=== PATIENT | female | born 1930 ===

== ENCOUNTER 2019-03-17 18:25 | Inpatient (IN) | payer MEDICARE ==
[2019-03-17] MEDS ORDERED: NS 0.9% 1000 ML** 1,000 ML IV ONE (18:32)
--- NOTE | 2019-03-17 18:33 | ED ---
Neurological HPI - HPI Summary HPI Summary: Patient is an 88 y/o F presenting to the ED via EMS for a chief complaint of left-sided weakness. Patient is present with her daughter. At approximately 17: 30, the patient's granddaughter noticed the patient had right-sided weakness that is not at baseline. Patient reports numbness in the left UE. Patient does not have a fever. Last known well time was around 15:00. PMHx is significant for seizure disorder, stroke, and atrial fibrillation. Patient has baseline mental changes from a previous stroke. Patient's daughter denies that the patient had a loss of consciousness. She does not take blood thinners. Medications reviewed. Allergies noted. - History of Current Complaint Stated Complaint: POSS STROKE PER EMS Time Seen by Provider: 03/17/19 18:31 Hx Obtained From: Patient Onset/Duration: Sudden Onset, Still Present Timing: Sudden Onset Onset Severity: Moderate Current Severity: Moderate Neurological Deficit Location: LUE Pain Scale Used: 0-10 Numeric Syncope Context: Loss of Consciousness: No Aggravating: Nothing Alleviating: Nothing Associated Signs and Symptoms: Positive: Weakness - Left-sided. Negative: Loss of Consciousness, Fever - Allergy/Home Medications Allergies/Adverse Reactions: Allergies Allergy/AdvReac Type Severity Reaction Status Date / Time No Known Allergies Allergy Verified 03/17/19 19:04 Home Medications: Home Medications Atorvastatin* [Lipitor*] 80 mg PO DAILY 03/17/19 [History Confirmed 03/17/19] Citalopram TAB* [CeleXA TAB*] 10 mg PO DAILY 03/17/19 [History Confirmed ] NIFEdipine ER TAB* [Procardia Xl TAB*] 30 mg PO DAILY 03/17/19 [History Confirmed 03/17/19] Polyethylene Glycol 3350* [Miralax*] 17 gm PO DAILY 03/17/19 [History Confirmed 03/17/19] levETIRAcetam TAB* [Keppra TAB*] 1,000 mg PO BID 03/17/19 [History Confirmed ] PMH/Surg Hx/FS Hx/Imm Hx Previously Healthy: Yes Endocrine/Hematology History: Denies: Hx Diabetes Cardiovascular History: Reports: Hx Atrial Fibrillation Denies: Hx Hypercholesterolemia, Hx Hypertension Sensory History: Denies: Hx Legally Blind, Hx Deafness Opthamlomology History: Denies: Hx Legally Blind EENT History: Denies: Hx Deafness Neurological History: Reports: Hx Seizures, Other Neuro Impairments/Disorders - Stroke - Surgical History Surgical History: None Infectious Disease History: No - Family History Known Family History: Negative: Diabetes - Social History Occupation: Retired Lives: With Family Alcohol Use: None Hx Substance Use: No Substance Use Type: Reports: None Hx Tobacco Use: No Smoking Status (MU): Never Smoked Tobacco Review of Systems Negative: Fever Positive: Weakness - Positive left-sided weakness, Numbness - Left UE. Negative : Syncope - Negative LOC All Other Systems Reviewed And Are Negative: Yes Physical Exam - Summary Physical Exam Summary: Constitutional: Well-developed, Well-nourished, Alert. (-) Distressed Skin: Warm, Dry HENT: Normocephalic; Atraumatic Eyes: Conjunctiva normal Neck: Musculoskeletal ROM normal neck. (-) JVD, (-) Stridor, (-) Tracheal deviation Cardio: Rhythm regular, rate normal, Heart sounds normal; Intact distal pulses; Radial pulses are 2+ and symmetric. (-) Murmur Pulmonary/Chest wall: Effort normal. (-) Respiratory distress, (-) Wheezes, (-) Rales Abd: Soft, (-) tenderness, (-) Distension, (-) Guarding, (-) Rebound Musculoskeletal: (-) Edema Lymph: (-) Cervical adenopathy Neuro: Alert, Oriented x3. No effort against gravity in the upper extremity, effort in the left LE but cannot hold against gravity, no facial droop, cannot state name. Psych: Mood and affect Normal Triage Information Reviewed: Yes Vital Signs Reviewed: Yes - [place] Coma Scale Best Eye Response: 4 - Spontaneous Best Motor Response: 6 - Obeys Commands Best Verbal Response: 5 - Oriented Coma Scale Total: 15 Procedures - Sedation Patient Received Moderate/Deep Sedation with Procedure: No Diagnostics - Laboratory Result Diagrams: 03/17/19 18:43 03/17/19 18:43 Lab Statement: Any lab studies that have been ordered have been reviewed, and results considered in the medical decision making process. - CT Brain CT CT Interpretation Completed By: Radiologist Summary of CT Findings: Brain CT IMPRESSION: 1. No acute intracranial pathology. ASPECTS score 10. 2. Other chronic findings, as above. Reviewed by Dr. Sánchez. Head CTA CT Interpretation Completed By: Radiologist Summary of CT Findings: Head CTA IMPRESSION: 1. Mildly atherosclerotic non- stenotic bilateral common carotid arteries. Otherwise normal neck CTA. 2. Biapical lung findings suggesting chronic aspiration. Superimposed endobronchial pneumonia also considered. 3. Multiple small thyroid nodules. No followup imaging indicated per ACR guidelines. Reviewed by Dr. Sánchez. - EKG 19:05 Cardiac Rate: Other Rate - 75 BPM EKG Rhythm: Atrial Fibrillation ST Segment: Normal Ectopy: None Summary of EKG Findings: EKG at 19:05 shows 75 BPM with atrial fibrillation, no STEMI. Reviewed and interpreted by Dr. Sánchez. NIH Scale - NIH Scale Level of Consciousness: Alert/Keenly Responsive Ask Patient the Month and His/Her Age: One Correct/Not Aphasic Ask Pt to Open/Close Eyes and Programming Coordinator/Release Non-Paretic Hand: Both Correctly Best Gaze (Only Horizontal Eye Movement): Normal Facial Paresis-Pt to Smile & Close Eyes or Grimace Symmetry: Minor Paralysis Motor Function - Right Arm: No Drift-Holds 10 Seconds Motor Function - Left Arm: No Movement Motor Function - Right Leg: No Drift-Holds 10 Seconds Motor Function - Left Leg: Effort Against [place] NIH Stroke Scale Comment: Limited exam as patient was quickly evaluated and taken to the CT suite. Seizure occurred after return from CT suite and patient was post ictal and medicated making exam unable to be performed. Re-Evaluation - Re-Evaluation First Eval Re-Evaluation Time: 18:47 Comment: At 18:47, patient is talking with her family. She has a history of brain hemorhhage. She lives with her daguther and was functional until today. Patient's family is unsure if they want to pursue contrast imaging. The family does not want the [facility] stroke team involved yet. Second Eval Re-Evaluation Time: 18:54 Change: Worse Comment: At 18:54, patient is having a seizure. Third Eval Re-Evaluation Time: 19:17 Change: Unchanged Comment: At 19:17, patient is post ictal, family again declined a consultation with [facility]. Course/Dx - Diagnoses Provider Diagnoses: Grand mal seizure, CVA (cerebral vascular accident), Left-sided weakness, Atrial flutter During the Visit The Following Alert/Code Occurred: Code Gaspar - CODE GASPAR ETA 10 MINUTES AT 18:22. EMS ARRIVE TO [facility] at 18:25. DR. SÁNCHEZ PRESENT TO ASSESS THE PATIENT AT 18:26. PATIENT TAKEN TO HAVE A HEAD CTA AND BRAIN CT AT 18 :32. - Physician Notifications Discussed Care Of Patient With: Teetee Hebert - At 20:16, Dr. Hebert agrees to admit the patient with a diagnosis of grand mal seizure, CVA, left-sided weakness, atrial flutter. Time Discussed With Above Provider: 20:16 Instructed by Provider To: Admit As Inpatient Discharge ED - Sign-Out/Discharge Documenting (check all that apply): Patient Departure - Admit - Discharge Plan Condition: Stable Disposition: ADMITTED TO [facility] Referrals: [facility] [Outside] - Attestation Statements Document Initiated by Scribe: Yes Documenting Scribe: Nandini Parrish Provider For Whom Scribe is Documenting (Include Credential): Magdy Sánchez MD Scribe Attestation: Nandini James, scribed for Magdy Sánchez MD on 03/17/19 at 2023. Status of Scribe Document: Ready
[2019-03-17] MEDS ORDERED: Iodixanol* (CONTRAST) 320 MG/ML 100 ML SDV IV ONE (18:52)
[2019-03-17] MEDS ORDERED: Lorazepam PYXIS KEY ONE (18:53)
[2019-03-17] MEDS ORDERED: LORazepam INJ* 2 MG/ML 1 ML VIAL ONE (18:54)
[2019-03-17] MEDS ORDERED: levETIRAcetam 1000MG IVPREMIX* 1,000 MG/100 ML BAG IVPB ONE (18:55)
[2019-03-17] MEDS ORDERED: LORazepam INJ* 2 MG/ML 1 ML VIAL IV PUSH ONE (18:57)
[2019-03-17 19:00] LABS: ABS Eosinophils 0.1 10^3/ul (0-0.6); ABS Lymphocytes 1.2 10^3/ul (1.0-4.8); ABS Monocytes 0.6 10^3/ul (0-0.8); ABS Neutrophils 3.9 10^3/ul (1.5-7.7); Eosinophil % 2.3 %; Hematocrit 43 % (35-47); Hemoglobin 14.5 g/dL (12.0-16.0); Lymphocyte % 20.7 %; Mean Corpuscular HGB Conc 33 g/dL (31-36); Mean Corpuscular Hemoglobin 32 pg (27-31); Mean Corpuscular Volume 97 fL (80-97); Mean Platelet Volume 7.4 fL (7.4-10.4); Nucleated Red Blood Cells % 0.1; Platelet Count 219 10^3/uL (150-450); Red Cell Distribution Width 13 % (10-15); White Blood Count 5.9 10^3/uL (3.5-10.8)
[2019-03-17 19:09] LABS: Activated Partial Thrombo Time 33.3 seconds (26.0-38.0); INR 1.1 (0.82-1.09)
[2019-03-17 19:25] LABS: ALT 10 U/L (7-52); AST 18 U/L (13-39); Albumin 4.1 g/dL (3.2-5.2); Albumin/Globulin Ratio 1.6 (1-3); Alkaline Phosphatase 106 U/L (34-104); Anion Gap 8 mmol/L (2-11); BUN/Creatinine Ratio 23.1 (8-20); Blood Urea Nitrogen 18 mg/dL (6-24); CO2 Carbon Dioxide 28 mmol/L (22-32); Chloride 103 mmol/L (101-111); Cholesterol 168 mg/dL; EGFR African American 84.7 (>60); Globulin 2.5 g/dL (2-4); Glucose 125 mg/dL (70-100); HDL Cholesterol 66.8 mg/dL; LDL Cholesterol 86 mg/dL; Potassium 4.2 mmol/L (3.5-5.0); Sodium 139 mmol/L (135-145); Total Protein 6.6 g/dL (6.4-8.9); Triglycerides 76 mg/dL
[2019-03-17 19:30] LABS: Troponin I 0.04 ng/mL (<0.03)
[2019-03-17] MEDS ORDERED: Lorazepam PYXIS KEY PRN (20:56)
[2019-03-17] MEDS ORDERED: LORazepam INJ* 2 MG/ML 1 ML VIAL IV PUSH PRN (20:56)
[2019-03-17] MEDS ORDERED: NS 0.9% 1000 ML** 1,000 ML IV SCH (21:00)
[2019-03-17] MEDS ORDERED: Aspirin SUPP* 300 MG PR ONE (21:51)
[2019-03-17 22:22] LABS: Urine Appearance Clear; Urine Bilirubin Negative (Negative); Urine Blood 1+ (Negative); Urine Color Yellow; Urine Glucose Negative (Negative); Urine Ketones Negative (Negative); Urine Nitrite Negative (Negative); Urine Protein 1+(30 mg/dL) (Negative); Urine Specific Gravity > 1.060 (1.010-1.030); Urine Urobilinogen Negative (Negative)
[2019-03-17 22:35] LABS: Urine Bacteria Absent (Absent); Urine Red Blood Cell Trace(0-2/hpf) (Absent); Urine White Blood Cell Absent (Absent)
--- NOTE | 2019-03-17 23:14 | HP ---
CC: Dr. Yepez * HISTORY AND PHYSICAL: DATE OF ADMISSION: 03/17/19 PRIMARY CARE PROVIDER: Dr. Yepez. CHIEF COMPLAINT: Stroke. HISTORY OF PRESENT ILLNESS: Ms. 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 Following the patient's stroke in July, she regained independence with walking, dressing, and toileting; however, she would have help with showers. She could continue to help in the kitchen. She had essentially been living with her daughter and son-in-law. Her memory was poor before the stroke, became much worse. Everything had been stable up until the afternoon of 03/17/19 when the patient's granddaughter heard her state that she needs to go to the bathroom. She went to check on her and she found that she was not able to move her left arm. She could move her left leg, but was unable to get up on her own which was different from her baseline. The patient was noted to be very confused. Her speech, however, was clear and not garbled. Of note as above, the patient did have seizures at the time of her stroke in July. She was started on Keppra; however, this was subsequently weaned off due to psychiatric side effects. The patient had been seizure free. In the emergency room, the patient on presentation was noted to not be able to move her left arm. When she returned from CT scan, she had a grand mal seizure. She was given a milligram of Ativan, and since that time, she has been obtunded. PAST MEDICAL HISTORY: 1. CVA in July 2018, right MCA CVA with hemorrhagic transformation. 2. AFib. 3. Hypertension. 4. Anxiety. 5. Raynaud's. PAST SURGICAL HISTORY: 1. D and C. 2. Surgery for pyloric stenosis (?). MEDICATIONS: 1. Nifedipine 30 mg p.o. daily. 2. Aspirin 81 mg p.o. daily. 3. Celexa 10 mg p.o. daily. 4. Lipitor 80 mg p.o. daily. ALLERGIES: No known drug allergies. FAMILY HISTORY: Mom of complications of rheumatic heart disease. Dad of a brain tumor. SOCIAL HISTORY: The patient is a lifelong nonsmoker. She drinks alcohol rarely. She is . She again is living with her daughter and her son-in- law who is an design studio consultant. She has 3 children. Her 2 daughters would be her healthcare proxies. REVIEW OF SYSTEMS: Unobtainable from the patient. PHYSICAL EXAMINATION GENERAL: The patient is a well-developed elderly female, who is minimally responsive to light touch and does not respond to voice. VITAL SIGNS: Blood pressure 143/66, pulse 58, respirations 22, temp 96.9, O2 sat 100% on room air. HEENT: When I lift the patient's eyelids, her pupils are round, they react to light. Oropharynx is clear and appears moist. PULMONARY: Lungs are clear anteriorly. CARDIAC: Normal S1 and S2. Heart rate is irregularly irregular, mildly bradycardic. There is no lower extremity edema. ABDOMEN: Bowel sounds are present. Abdomen is soft, nontender, nondistended. MUSCULOSKELETAL: The patient moves her right arm freely. I do not see her move either of her lower extremities or her left upper extremity. NEUROLOGIC: Exam is not able to be completed adequately due to the patient not being able to follow command, though when I grabbed the patient's hand and put my fingers in the palm of her hand, she does not give me a grasp. The arm seems to be flaccid. She has an upgoing Babinski on the left. PSYCH: Unable to be evaluated. SKIN: Visible areas of skin are warm, dry, and without rash. DIAGNOSTIC STUDIES/LAB DATA: Labs: WBC 5.9, hemoglobin 14.5, hematocrit 43, platelets 219. INR 110. Sodium 139, potassium 4.2, chloride 103, CO2 of 28, BUN 18, creatinine 0.78, glucose 125, lactic acid 2.0, calcium 9.0. Bilirubin 0.6, AST 16, ALT 10, alk phos 106. Troponin 0.04. Albumin 4.1. Triglycerides 76, total cholesterol 168, LDL 86, HDL 66.8. EKG reveals atrial fib/flutter with a controlled rate. Chest x-ray to my interpretation, I question infiltrate in the right middle lobe versus scarring. CT brain: No acute intracranial pathology. There is chronic right parietotemporal infarct with encephalomalacia. There are nonspecific hypodensities in the periventricular and deep subcortical white matter most likely secondary to chronic small vessel ischemic change. There is no intracranial hemorrhage or extraaxial fluid collection. CTA head and neck: There is moderately atherosclerotic stenosis of the bilateral internal carotid arteries. There is mildly stenotic left vertebral artery. There is moderate chronic small vessel ischemic change and an old right temporoparietal MCA territorial infarct. ASSESSMENT AND PLAN: Ms. Hill is an 88-year-old female with a past history of right middle cerebral artery cerebrovascular accident, atrial fibrillation, hypertension, anxiety, and Raynaud's who presents to the emergency room after her family found her in the midst of having a cerebrovascular accident. 1. Probable right middle cerebral artery cerebrovascular accident. The patient was noted to have a flaccid left upper extremity. At this point, she is sedated from Ativan due to her having a grand mal seizure in the emergency room. She is not able to cooperate with exam. My hope is that by morning, she will be more alert. She does take aspirin on a daily basis and this has been ordered to continue. She will otherwise receive an aspirin 300 mg suppository tonight. The patient's family wishes for relatively conservative treatment. The goal is to have the patient become alert and get back home with increased support at home. I do not think it is worth pursuing echocardiogram or MRI at this point as the patient's family wants limited medical interventions. 2. Grand mal seizure. This is likely related to the patient's stroke. She had previously been on Keppra; however, this had been weaned off. The patient was loaded with Keppra 1 g IV. She will continue 1 g IV q.12 hours. The patient reportedly had psychiatric side effects from this medication, which led to its discontinuation. I will ask for neurology consultation tomorrow morning to help determine appropriate antiepileptic and for further management of her stroke. 3. Atrial fibrillation. This is controlled. She is not on full anticoagulation. She will continue on aspirin alone. 4. Hypertension. Blood pressure is mildly elevated. We will allow her blood pressure to run high. She will continue, however, on a nifedipine which is used for both blood pressure and treatment of Raynaud's. 5. Anxiety. We will continue Celexa if she wakes up and is able to swallow. 6. DVT prophylaxis: According to the Adult Thrombosis Prophylaxis Risk Factor Assessment Guide, the patient has a total risk factor score of 8, making her the highest risk. Lovenox 30 mg subcutaneous daily will be utilized as DVT prophylaxis. 7. Code status is DNR/DNI. TIME SPENT: Sixty five minutes was spent admitting this patient. [id number]/[facility] #: [id number] MTDD
[2019-03-17 23:58] LABS: Troponin I 0.06 ng/mL (<0.03)
[2019-03-18] MEDS ORDERED: Haloperidol INJ IV/IM* 5 MG/ML AMP IV SLOW PU PRN (00:04)
[2019-03-18 06:34] LABS: Troponin I 0.07 ng/mL (<0.03)
[2019-03-18] MEDS: levETIRAcetam 1000MG IVPREMIX* 1,000 MG/100 ML BAG IVPB SCH ×2 (08:42→20:52)
[2019-03-18] MEDS ORDERED: Aspirin 81 mg CHEW TAB* 81 MG TAB.CHEW PO SCH (09:00)
[2019-03-18] MEDS ORDERED: NIFEdipine ER TAB* 30 MG PO SCH (09:00)
[2019-03-18] MEDS ORDERED: Citalopram TAB* 10 MG PO SCH (09:00)
[2019-03-18] MEDS ORDERED: Atorvastatin* 80 MG TAB PO SCH (09:00)
[2019-03-18 10:18] LABS: Magnesium 1.9 mg/dL (1.9-2.7); Phosphorus 3.3 mg/dL (2.5-5.0)
--- NOTE | 2019-03-18 12:52 | CONS ---
CONSULTATION REPORT: DATE OF CONSULT: 03/18/19 CONSULTING PROVIDER: Dr. Hebert. REASON FOR CONSULT: Seizures. CHIEF COMPLAINT: Drowsiness and seizure. HISTORY OF PRESENT ILLNESS: Ms. 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 The patient was appropriately weaned off levetiracetam due to possible worsening depression. Her last dose was approximately 5 months ago. She was doing well without any seizures. Initially , she was started on levetiracetam at [facility] 1000 mg twice daily and slowly that dose was decreased by Dr. Camp. The patient presented to [facility] on 03/17/19 for worsening left-sided weakness onset at 1730. While in the hospital, the patient had a witnessed seizure at 1854. Following the seizure, the patient had complete loss of function of the left arm and left leg. The patient was loaded with levetiracetam x1 dose and Ativan. Today, the patient is moving all 4 extremities. According to her daughter Yasmine, the patient seems to be back to her normal self except that she is extremely drowsy. Please note that the patient developed delirium early this morning and received 2 mg of Haldol at 5:29 a.m. The description of the seizure according to the bedside nurse, the patient began seizing with full body convulsions. The seizures lasted for approximately 3-1/2 minutes. The patient was noted to also have increasing weakness in the left arm after the seizure. She also had left facial droop. Please note that the CT head without contrast was done on 03/17/19 at 1832 that showed no acute intracranial pathology with a prior chronic right parietotemporal infarct with encephalomalacia. She had a CTA head and neck completed on 03/17/19 at 6:38 p.m. that showed moderate atherosclerotic and mild stenotic bilateral internal carotid arteries, moderate chronic small vessel ischemic disease and mild stenotic left vertebral artery. PAST MEDICAL HISTORY: 1. Hypertension. 2. Atrial fibrillation, not on any anticoagulation therapy. 3. 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 4. Carotid artery disease. 5. Depression, on Celexa. 6. Localization related symptomatic partial epilepsy. PAST SURGICAL HISTORY: 1. Pyloric stenosis. 2. D and C. HOME MEDICATIONS: 1. Nifedipine 30 p.o. daily. 2. Aspirin 81 mg p.o. daily. 3. Lipitor 80 mg p.o. daily. 4. Celexa 10 mg p.o. daily. ALLERGIES: No known drug allergies. FAMILY HISTORY: No family history of stroke or seizures. Her dad passed of brain tumor. SOCIAL HISTORY: The patient is a lifelong nonsmoker, drinks alcohol rarely. She is . She lives with her daughter and her son-in-law Dr. Byrd. She has 3 children and 2 daughters. Her 2 daughters would be her healthcare proxies. At baseline, the patient is able to feed herself and walk, initially with a walker after her stroke, but now can walk independently. She is unable to cook. She is able to dress herself. She does not drive. REVIEW OF SYSTEMS: A 12-point review of systems was obtained and was otherwise negative except for as mentioned in HPI. PHYSICAL EXAM: Vital Signs: Temperature of 98.5, pulse of 54, respiratory rate of 20, oxygen saturation of 93%, blood pressure 128/62. General: Mildly ill- appearing, frail female in no acute distress. She appears her stated age. Head: Atraumatic, normocephalic without any obvious abnormality. No nuchal rigidity. Eyes: Conjunctivae/corneas are clear. Oral cavity: No significant tongue laceration. Neck is supple with no carotid bruits. Cardiovascular: Irregular rate and rhythm. Chest: Clear to auscultation bilaterally. Extremities: Normal range of motion with no cyanosis or edema. Skin: There is a slight laceration and tear on the left extensor surface of the arm. Psych : Broad affect. Normal mood. Easy to establish rapport, although, she was slightly drowsy. Neurological Examination: Awake, alert; oriented to person, place, time and general circumstance. She knew her daughter Yasmine at the bedside. She asked what type of doctor I was. She does have a history of mild cognitive impairment and poor short-term memory recall. Cranial nerves: Eyes, pupils equal, round, reactive to light. Extraocular muscles intact. There is normal sensation in the face bilaterally, there is left facial droop. Tongue is symmetric and midline with no atrophy or fasciculation. Motor Examination: She is antigravity on all 4 extremities, but slightly stronger on the right arm and right leg, but she does have mild baseline weakness on the left upper and lower extremity. However, she was reported to have flaccidity last night and this has significantly improved. Sensation is intact to throughout to light touch. Reflexes are 1+ on the right, 2+ on the left with downgoing plantar responses bilaterally. Coordination: Normal [id number] and [id number] testing. Gait was not assessed as the patient has a Velasco and was drowsy. DIAGNOSTIC STUDIES/LAB DATA: WBC 5.9, RBC is 4.5, hemoglobin of 14, hematocrit 43, platelet count of 219, INR is 1.10, BUN-creatinine of 23, glucose of 125, alkaline phosphatase of 106, troponin of 0.07. Urinalysis negative for pyuria. Specific labs such as magnesium and phosphorus were not obtained, but an order has been added. ASSESSMENT AND RECOMMENDATIONS: Ms. Syl Hill is an 88-year-old female with history of right MCA vascular territory ischemic stroke complicated with left-sided weakness, hemorrhagic conversion, and symptomatic localization related partial epilepsy. The patient was appropriately weaned off of levetiracetam due to complication of increased anxiety and depression. The patient has been off the levetiracetam for approximately 5 months. The family knew about the risk of recurrent seizures off antiseizure medications. The patient presented to [facility] on 03/17/19 with a breakthrough seizure. 1. Breakthrough seizure in a patient with a known history of localization related partial symptomatic epilepsy. I suspect the left-sided weakness and flaccidity was related to a Mina's paralysis since she has significantly recovered overnight. Yasmine stated that further testing is not warranted and the family would like to take the patient home tonight. Yasmine wanted the Velasco catheter to be removed immediately for which I have placed an order for that. Furthermore, we have agreed to start the patient on levetiracetam 1000 mg p.o. twice daily. I do suspect that 1000 mg twice daily is a high dose for such a frail elderly female; however, given her prolonged seizure last night, she is at risk of recurrent seizures. Therefore, I recommend continuing the levetiracetam 1000 mg twice a day, obtaining an EEG to evaluate the degree of epileptogenic potentials and then slowly reduce the dose to possibly 500 mg twice daily as an outpatient. Other medications that she may tolerate better would be Vimpat and lamotrigine. Again, these medications would be discussed and considered as an outpatient. Neuro-checks every 4 hours. Hold off on any further intracranial testing including an MRI unless the family would like to proceed to do an MRI to evaluate for any possible small little embolic stroke in the setting of atrial fibrillation not on anticoagulation therapy. I doubt that is the case since her exam is almost back to baseline. There has not been any electrolyte or infectious etiology discovered. However, magnesium and phosphorus level were not checked, but added to the morning labs. Her urinalysis was unremarkable. I encouraged the patient to get out of bed and ambulate. I do recommend physical therapy to evaluate and treat before discharge. I discussed these recommendations with Yasmine, the patient's daughter at bedside. She verbalized understanding and agreed with the plan. She will relay these recommendations to Dr. Castellanos, the patient's son-in-law. The patient should follow up with Dr. Camp in 6 to 8 weeks. [id number]/[facility] #: [id number] GERMÁN
[2019-03-18] MEDS ORDERED: Acetaminophen TAB* 325 MG PO PRN (19:35)
[2019-03-18] MEDS ORDERED: levETIRAcetam TAB* 500 MG PO ONE (20:14)
[2019-03-18] MEDS ORDERED: Enoxaparin(*) 30 MG/0.3 ML SYR SUBCUT SCH (21:00)
[2019-03-18] MEDS ORDERED: Analgesic BALM* 114 GM TOPICAL SCH (21:00)
--- NOTE | 2019-03-18 21:30 | EEG ---
ELECTROENCEPHALOGRAPHY REPORT: DATE OF SERVICE: 03/18/19 DATE READ: 03/18/19 ORDERED BY: Laurie Bautista NP. DURATION: 1522 - 1541. INDICATION: An 88-year-old female who has a history of right MCA vascular territory ischemic infarction. She has left hemiparesis. 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 This EEG was obtained to evaluate for epileptiform discharges or electrographic seizures. MEDICATIONS: 1. Keppra. 2. Lovenox. 3. Aspirin. 4. Lipitor. 5. Celexa. 6. Procardia. 7. Haldol. 8. Ativan. REPORT: The EEG showed an interhemispheric asymmetry with neither side being normal. Over the right hemisphere, the background lacked organization or clearly defined anterior-posterior voltage and frequency gradients. There was no discernible posterior dominant rhythm, although there was a poorly sustained posterior dominant rhythm of about 6-7 Hz. However, the background consisted of mixed frequency 2-6 Hz theta and delta slowing that persisted throughout the recording. Over the left hemisphere, there was some retained organization and a discernible anterior-posterior voltage and frequency gradient. There was a slow posterior dominant rhythm of 7 Hz. There was intermittent diffuse 3-5 Hz theta and delta slowing seen throughout the recording. This asymmetry persisted during drowsiness. Hyperventilation and photic stimulation were not performed. There were no epileptiform discharges or electrographic seizures. IMPRESSION: This is an abnormal waking and drowsy EEG due to interhemispheric asymmetry with neither side being normal. There was poor organization and diffuse mixed frequency slowing over the right hemisphere and diffuse mild slowing over the left hemisphere. There were no clear epileptiform discharges. These findings are suggestive of a focal neuronal dysfunction involving the right hemisphere consistent with the patient's prior history of stroke with an underlying superimposed mild diffuse nonspecific encephalopathy which can be seen in the setting of postictal state, sedation, or underlying neurodegenerative disorder. Clinical correlation is recommended. [id number]/[facility] #: [id number] [place]
[2019-03-18 22:15] VITALS: BP 147/70
--- NOTE | 2019-03-18 22:54 | PN ---
Progress Note - Progress Note Date of Service: 03/18/19 SOAP: I had a long discussion with the patient's daughters at bedside. I spent 25 minutes discussing different medication regimen for her seizures. I do not recommend changing the levetiracetam right now since she seems to tolerate the medication. Plus she had convulsions this morning and is at risk of having recurrent seizures if her current therapy is manipulated. The family agreed to continue levetiracetam and discuss other therapies such as Vimpat, lamotrigine, or Depakote. Follow-up with Dr. Camp in a few weeks (if possible). I have contacted Dr. Castellanos to provide an update, as requested by Yasmine, and left him a message as he was not available. I advised the family to bring Ms. Hill back to the ED if she develops seizures, weakness, or headaches.
--- NOTE | 2019-03-21 19:35 | DS ---
CC: Dr. Yepez; Dr. Sesar Ram * DISCHARGE SUMMARY: DATE OF ADMISSION: 03/17/19 DATE OF DISCHARGE: 03/18/19 PRIMARY CARE PROVIDER: Dr. Yepez. ATTENDING FOR THIS DISCHARGE: Dr. Feliz.* (DICTATED BY ZITA RANDHAWA, DEBBIE ) NEUROLOGY: Dr. Sesar Ram. HOSPITAL COURSE: Please refer to admitting H and P by Dr. Teetee Hebert, but in short, Ms. 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 She presented to the emergency room in a confused state, but it should be noted that even though she was having seizures after her stroke in July, she was weaned off of her antiseizure medication due to some adverse side effects and some psychiatric issues she was having on that medication. The patient ultimately has been seizure-free up until this time, but in any case she was brought to the emergency department for this left-sided deficit. She was going to CAT scan when she had a full tonic-clonic seizure while in the emergency department. She was treated with IV Ativan and was quite obtunded thereafter. She was admitted to the hospital for rule out followup MCA infarct. The patient's symptoms, however, did resolve and it appeared that she was in a postictal state both from the prolonged seizure and also from the Ativan that she had been given. When she was awake and back to her baseline, her left-sided deficit did resolve and she was feeling much better. The family was very adamant about the patient having conservative treatment only and did not wish for her to have further MRIs and other testing. They did agree to have an EEG to direct therapy for seizure medication, however, because her seizure was so prolonged and could potentially cause further brain damage. The EEG was negative. She did not have any epileptiform discharges. However, the family did agree to be started on Keppra 1000 mg b.i.d. , which is a high dose, but given the severity of the seizure that she had that was witnessed and that was the dose that she had been on previously, Dr. Ram felt that it would be warranted to send her out on that medication and the family was in agreement. The patient also had some complaints of some back pain , which is not unusual after having such a violent seizure. She did have a CT of the thoracic spine, which did show some old compression fractures, which were likely exacerbated again by the seizure that she had. She was given Tylenol and also some Bengay, which did make her feel better. 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 Ultimately, again the patient's family wished for her to be discharged to home, which she was. We recommended outpatient followup with her PCP and also with her outpatient neurologist who is Dr. Camp. It should also be noted that the patient did have some mild troponinemia with elevated troponins. She denied any chest pain. The troponins were likely in the presence of demand ischemia secondary to prolonged seizure activity. She does have some cardiomegaly noted on her chest x-ray, but again the patient's family did not wish to pursue any additional diagnostics or testing and we did not continue to trend any further troponins and the patient's family did not wish to pursue stress test. DISCHARGE DIAGNOSES: 1. Left-sided deficit, possible stroke. 2. Breakthrough seizure related to post-stroke deficits. 3. History of atrial fibrillation, stable. 4. 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 5. Elevated troponin secondary to demand ischemia. MEDICATIONS FOR DISCHARGE: Include: 1. Aspirin 81 mg daily. 2. Procardia XL 30 mg p.o. daily. 2. Celexa 10 mg p.o. daily. 4. Lipitor 80 mg p.o. daily. New medication: Keppra 1000 mg p.o. b.i.d. REVIEW OF SYSTEMS: On the day of discharge, the patient is alert. Denies any fever, fatigue, or chills. She does complain of some back pain. No nausea, no vomiting. No shortness of breath, no chest pain. No weakness and no further constitutional complaints. PHYSICAL EXAMINATION: The patient is awake and alert, can be somewhat drowsy, but in no obvious physical distress. Vital signs are blood pressure 147/70, heart rate 74, respiratory rate 18, O2 saturation 94% on room air with a temperature of 98.2. HEENT: The patient is atraumatic, normocephalic. PERRLA. Nonicteric sclerae. Oral mucosa is moist. Tongue is midline. Neck: Supple, nontender. No JVD noted. No carotid bruits auscultated. Cardiovascular: S1, S2 present. Rate is irregular. No murmurs, gallops, or rubs noted. Lungs are clear bilaterally to auscultation with no wheezing, rhonchi, or rales. Abdomen is soft, nontender, and nondistended. Positive bowel sounds in all 4 quadrants. is deferred. Musculoskeletal: There is no clubbing, no cyanosis. She has no edema. +2 distal pulses palpable. Neurologic: She is alert and oriented x3. Gross motor and sensation are intact. She has some mild cognitive deficit. She does have some weakness baseline of the left upper extremity and left lower extremity, but otherwise no gross focal deficits noted. Psychiatric: She is cooperative, engaged, and appropriate. DIAGNOSTIC STUDIES/LAB DATA: WBCs 5.9, RBCs 4.50, hemoglobin 14.5, hematocrit 43 , platelets 219. Sodium 139, potassium 4.2, chloride 103, CO2 of 28, BUN 18, creatinine 0.78, GFR 70.0, glucose 125, lactic acid 2.0, phosphorus 3.3, magnesium 1.9. Total bilirubin 0.60, AST 18, ALT 10, alk phos 106. Troponins 0.04, 0.06 and 0.07. Total protein 6.6, albumin 4.1, globulin 2.5. Triglycerides 76, cholesterol total 168, LDL 86, HDL 66.8. B12 is 199. Imaging: CT of the brain shows no acute intracranial pathology. X-ray of the chest shows diffuse prominence of the interstitial markings consistent with mild congestive heart failure or chronic interstitial lung disease and some cardiomegaly. CTA of the head shows moderate atherosclerotic mildly stenotic bilateral internal carotid arteries, mildly stenotic left vertebral artery, moderate chronic small vessel ischemic disease, and an old right temporal and parietal MCA territorial infarct. CT of the thoracic spine as stated above T6 and T8 show subtle chronic compression fractures and biapical lung pleural parenchymal scarring with right lung findings and endobronchial pneumonia versus a chronic aspiration or associated pleural effusion. DISPOSITION: The patient was discharged to home in the care of family in stable condition. DIET: Heart-healthy diet as tolerated. FOLLOWUPS: The patient was instructed to follow up with Dr. Bigg Yepez in the next week, Dr. Pepito Camp in the next 1 to 2 weeks. She was also given a referral for visiting nurse service. CONDITION: Again, the patient was discharged in stable condition. The patient's family had many questions about her hospitalization, which I believe were answered effectively by both myself and by Dr. Ram. TIME SPENT: Time spent on discharge planning 45 minutes. ZITA RANDHAWA, SYSTEMS MECHANIC [id number]/[facility] #: [id number] [place]
== END 2019-03-18 21:21 | disposition home health service (06) | DRG 101 ==
LOC: ED 18:25 → MEDTELE 20:52
PROVIDERS: ADMIT Hospitalist; ATTEND Internal Medicine
PROC: 4A00X4Z Measurement of Central Nervous Electrical Activity, External Approach (ICD-10-PCS; principal; 2019-03-18)
DX: G40.109 Localization-related (focal) (partial) symptomatic epilepsy and epileptic syndromes with simple partial seizures, not intractable, without status epilepticus (principal); I69.354 Hemiplegia and hemiparesis following cerebral infarction affecting left non-dominant side; I24.8 Other forms of acute ischemic heart disease; M48.54XA Collapsed vertebra, not elsewhere classified, thoracic region, initial encounter for fracture; I48.91 Unspecified atrial fibrillation; I10 Essential (primary) hypertension; F32.9 Major depressive disorder, single episode, unspecified; F41.9 Anxiety disorder, unspecified; Z66 Do not resuscitate; Z79.82 Long term (current) use of aspirin; Z79.899 Other long term (current) drug therapy; I69.398 Other sequelae of cerebral infarction
CPT/HCPCS: 36415; 70450; 70496; 70498; 71045; 72128; 80053; 80061; 80177; 81003; 81015; 82607; 83605; 83735; 84100; 84484; 85025; 85610; 85730; 93005; 95816; 96365; 96375; 99284; A9270-GY; J1630; J1650; J1953; J2060; Q9967